=== PATIENT | male | born 1950 | race Caucasian/White ===

== ENCOUNTER 2017-11-04 03:12 | Emergency (ER) | payer MEDICARE, OTHER, SELFPAY ==
[2017-11-04 03:29] VITALS: BP 147/64; PULSE 65; RESP 16; TEMP 36.7; O2SAT 93; BMI 28.3
[2017-11-04] MEDS: HYDROMORPHONE 2 MG INJ IM (04:15)
--- NOTE | 2017-11-04 04:30 | ED_ITS ---
HPI - Back Pain/Injury General Chief Complaint: Back Pain/Injury Stated Complaint: BACK PAIN Time Seen by Provider: 11/04/17 03:20 History of Present Illness HPI Narrative: HPI 66-year-old male with a history of recurrent left-sided lumbar radiculopathy presents with typical left-sided paraspinal sharp pain that radiates to his left knee and occurred after tripping over a cord earlier today. Patient notes classic sharp radiating pain that is moderate to severe in intensity is provoked by walking, hip flexion, were sitting on the affected side. Patient denies falling or further injuries when he tripped. Patient denies a history of recent (further) trauma, fevers, chills, unexpected weight loss, decreased perineal sensation when toileting, difficulty urinating or incontinence, morning stiffness, IV drug use, alcoholism, recent invasive medical procedures, presyncope, abdominal pain, or dysuria. Smoking: never smoker. Anticoagulation: denies anticoagulation and Plavix. M/S/F/SocHx notable for: please see HPI; remainder reviewed with patient and in chart. ROS: Negative constitutional, eye, cardiovascular, pulmonary, GI, , MSK, skin , neurologic, psychiatric, endocrine unless noted in the HPI. Exam Gen: Pleasant, non-toxic appearing, resting comfortably. HEENT: NC, AT, PEERL, EOMI. Resp: CTAB Card: RRR GI: ND, non-tender to palpation, no palpable midline masses, no palpable midline pulsatility. : No CVA tenderness to percussion bilaterally. MSK: No visible deformities, strength and tone WNL. No lower thoracic or lumbar spinal TTP, step offs or deformities. No paraspinal TTP. Skin: Normal color with no visible lesions. Neuro: AO x 3, no facial asymmetry, vision and hearing WNL. Straight leg raise test - negative right, positive left. BLE distal sensation intact, 5/5 dorsiflexion / plantarflexion bilaterally. Gait: mildly antalgic, normal, narrow based gait, able to walk unassisted and stand on heels and toes with full apparent strength. Psych: Mood and affect appropriate. MDM Previous chart, nursing note, and vitals reviewed. A: 66-year-old male with a history of recurrent left-sided lumbar radiculopathy presents with typical left-sided paraspinal sharp pain that radiates to his left knee and occurred after tripping over a cord earlier today. DDx: muscle strain, muscle spasm, sciatica, lumbar radiculopathy, cauda equina syndrome, spinal cord abscess, vertebral osteomyelitis, vertebral diskitis, fracture, seronegative spondyloarthropathy, abdominal aortic aneurysm, abdominal aortic dissection, spontaneous hematoma, malignant spinal cord compression. Evaluation: * Cauda equina - consider unlikely given normal perineal sensation, lack of incontinence or urinary retention. * Infection - abscess, vertebral osteomyelitis, and diskitis are unlikely as the patient is immunocompetent and is with an absence of infectious signs and risk factors on ROS, and a lack of point tenderness. * Fracture - doubt given the absence of spinal TTP and lack of prior trauma * Seronegative spondyloarthropathy - unlikely, no further evaluation currently indicated given the absence of morning stiffness and negative RA, psoriatic arthritis, and autoimmune disease history. * AAA or Dissection - given the absence of tobacco use, the lack of a palpable pulsatile abdominal mass, abdominal pain, presyncope, an abdominal aortic aneurysm as well as dissection is considered unlikely and further investigation is not currently indicated. * Spinal Metastases - given the unremarkable ROS, absence of point spinal tenderness on exam and the lack of discernible neurological deficit, no further testing regarding this etiology is currently indicated. * Consider lumbar radiculopathy to be most likely cause of the patient's symptoms. Counseled patient regarding natural course of radicular back pain, given return to care instructions, and recommendation for primary care physician follow up. Discharged with RX for oxycodone 5-10 mg q6hr PRN pain. 12 tablets prescribed. * Patient given 2 mg hydromorphone IM for treatment of pain in the ED. Patient was notified of their elevated blood pressure and recommended to follow up with their primary care physician. As the patient is without evidence of acute end organ dysfunction no further emergent evaluation is indicated as per the 2013 [employer] clinical policy. Impression: Back Pain. (please reference below for remainder of encounter information) Related Data Home Medications Medication Instructions Recorded Confirmed atorvastatin [Lipitor] 10 mg PO HS #0 01/08/13 citalopram [Celexa] 20 mg PO QDAY #0 01/08/13 metformin [Glucophage XR] 500 mg PO TID #0 01/08/13 rabeprazole [Aciphex] 20 mg PO QDAY #0 01/08/13 Previous Rx's Medication Instructions Recorded cyclobenzaprine 10 mg PO HS #21 01/08/13 ibuprofen 800 mg PO Q8H #60 01/08/13 Allergies Allergy/AdvReac Type Severity Reaction Status Date / Time No Known Allergies Allergy Uncoded 08/30/17 11:57 PFS Social History Smoking Status: Never smoker Exam Initial Vital Signs Initial Vital Signs: Vital Signs Temperature 98.0 F 11/04/17 03:29 Pulse Rate 65 11/04/17 03:29 Respiratory Rate 16 11/04/17 03:29 Blood Pressure 147/64 H 11/04/17 03:29 Pulse Oximetry 93 11/04/17 03:29 Course Orders Ordered: Discontinued Medications Hydromorphone HCl (Dilaudid) 2 mg IM NOW ONE Stop: 11/04/17 03:58 Last Admin: 11/04/17 04:15 Dose: 2 mg Vital Signs - 8 hr 11/04/17 03:29 Temperature 98.0 F Pulse Rate 65 Respiratory Rate 16 Blood Pressure 147/64 H Pulse Oximetry 93 Discharge Plan Departure Prescriptions: No Action rabeprazole [Aciphex] 20 MG tablet,delayed release (DR/EC) 20 mg PO QDAY Qty: 0 RF: 0 atorvastatin [Lipitor] 10 MG tablet 10 mg PO HS Qty: 0 RF: 0 citalopram [Celexa] 20 MG tablet 20 mg PO QDAY Qty: 0 RF: 0 metformin [Glucophage XR] 500 MG tablet extended release 24 hr 500 mg PO TID Qty: 0 RF: 0 cyclobenzaprine 10 MG tablet 10 mg PO HS Qty: 21 RF: 0 ibuprofen 800 MG tablet 800 mg PO Q8H Qty: 60 RF: 0
[2017-11-04 05:02] VITALS: BP 145/90; PULSE 66; RESP 16; TEMP 36.8; O2SAT 95
== END 2017-11-04 05:03 | disposition home or self-care (01) ==
PROVIDERS: Emergency Provider Emergency Medicine; Family Provider Family Medicine; PCP Family Medicine
DX: M54.9 Dorsalgia, unspecified (principal)
CPT/HCPCS: 96372; 99282; 99283; J1170

== ENCOUNTER → 2019-02-13 09:09 | Outpatient (CLI) | payer MEDICARE, OTHER, SELFPAY ==
--- NOTE | 2019-02-13 | DI.MRI.S_ITS ---
PROCEDURE: MR LUMBAR SPINE WO CON INDICATIONS: LOW BACK PAIN TECHNIQUE: Noncontrast sagittal T1 spin echo and T2 fast echo, sagittal STIR, axial T1 and T2 fast spin echo through the lumbar spine. In cases with scoliosis, additional coronal T2 fast spin echo may be performed. COMPARISON: [facility], MR, L-SPINE WITHOUT CONTRAST, 06/26/2017, 13:49. FINDINGS: Image quality: Excellent. Alignment and Curvature: There is normal bony alignment. Bone Marrow: Marrow is of normal overall signal. No acute vertebral body compression fractures. Spinal Cord: Conus medullaris terminates at the L1-L2 level. Visualized cord demonstrates normal signal and size. Paraspinous Soft Tissues: No paravertebral masses. Discs: Moderate to severe desiccation is present throughout the lumbar spine. L1-L2: Minimal disc bulge without spinal stenosis or foraminal narrowing. No interval change. Minimal epidural lipomatosis. L2-L3: Mild disc bulge with mild spinal stenosis. Minimal epidural lipomatosis. Mild bilateral foraminal narrowing with facet and ligamentum flavum hypertrophy. No interval change. L3-L4: Mild disc bulge including a left foraminal component, minimally more prominent when compared to prior exam. Mild spinal stenosis is present. Severe left and mild right foraminal narrowing with flattening of the exiting L3 nerve root, unchanged in appearance. Minimal epidural lipomatosis is present. Facet and ligamentum flavum arthropathy are present. L4-L5: Mild disc bulge with nonvisualization of previously identified superimposed Protrusion. There is mild spinal stenosis as well is moderate left and moderate to severe right foraminal narrowing with facet and ligamentum flavum hypertrophy. L5-S1: Mild disc bulge without spinal stenosis. Mild bilateral foraminal narrowing, unchanged in appearance compared to prior exam. Facet and ligamentum flavum hypertrophy are present. IMPRESSION: 1. There is identified protrusion L4-L5 is less prominent. 2. Multilevel foraminal narrowing is unchanged most severe at L3-4 and L4-5 secondary to facet/ligamentum flavum arthropathy. 3. Multilevel overall mild spinal stenosis is present, secondary to disc bulge with contributing effects of facet/ligamentum flavum arthropathy. Dictated by: Kiana Garsia M.D. on 02/13/2019 at 14:34 Approved by: Kiana Garsia M.D. on 02/13/2019 at 15:17
== END ==
PROVIDERS: Family Provider Family Medicine; PCP Family Medicine; Visit Provider Physical Medicine & Rehabilitation Pain Medicine
DX: M51.26 Other intervertebral disc displacement, lumbar region (principal); M51.27 Other intervertebral disc displacement, lumbosacral region; M47.816 Spondylosis without myelopathy or radiculopathy, lumbar region; M48.061 Spinal stenosis, lumbar region without neurogenic claudication; M48.07 Spinal stenosis, lumbosacral region
CPT/HCPCS: 72148

== ENCOUNTER → 2021-04-07 10:26 | Outpatient (CLI) | payer MEDICARE, OTHER, SELFPAY ==
[2021-04-07 12:32] LABS: COVID19 -Nasal RAPID Negative (Negative)
== END ==
PROVIDERS: Family Provider Family Medicine; PCP Family Medicine; Visit Provider Nurse Practitioner Family
DX: Z20.822 Contact with and (suspected) exposure to COVID-19 (principal)
CPT/HCPCS: 87635; C9803

== ENCOUNTER → 2021-04-09 08:40 | Outpatient (CLI) | payer MEDICARE, OTHER, SELFPAY ==
--- NOTE | 2021-04-09 18:12 | DI.NM.S_ITS ---
DATE OF SERVICE: 04/09/2021 PROCEDURE PERFORMED: Exercise treadmill stress and rest myocardial perfusion imaging with gating to assess ejection fraction and regional wall motion. ORDERING PROVIDER: Dr. Destin Akers. INDICATIONS: The patient is a 70-year-old male status post percutaneous revascularization with bradycardia and PVCs. EXERCISE TREADMILL TESTING: The patient was able to exercise for 7 minutes, 13 seconds on a standard Juan protocol, suggesting average exercise capacity with an MANA of +2%. He had a normal heart rate and blood pressure response to exercise, achieving a maximum heart rate of 133 BPM (90% of his predicted maximum). He had no chest discomfort or anginal symptoms. His resting ECG shows sinus rhythm with nonspecific ST and T-wave abnormalities. With stress, these becomes slightly accentuated, but remain nonspecific. There were occasional PVCs with exercise, rarely in couplets and fairly frequent PACs in recovery, but no sustained arrhythmias. At 6 minutes of exercise, at a heart rate of 125 BPM, 22.5 millicuries of technetium-99m Myoview was injected and he was imaged 10 minutes later using an quantitative gated SPECT acquisition protocol. Earlier in the day while at rest, he had been injected with 10.0 millicuries of technetium-99m Myoview was imaged 20 minutes later, again using a gated SPECT acquisition protocol. FINDINGS: 1. Raw data: There is fair myocardial tracer uptake. The lung/heart ratio is normal at 0.14 with a normal TID ratio of 0.94. 2. Quantitated gated SPECT: Post-stress ejection fraction is estimated at 66%. There is akinesis in the proximal to mid inferior wall extending into the inferior septum, but sparing the distal inferior wall and apex. There are no other wall motion abnormalities. The resting images show a similar contraction pattern with an estimated ejection fraction of 62% and a mildly increased end- diastolic volume of 151 mL. 3. Myocardial perfusion imaging: The post-stress supine images show a severe perfusion defect in the proximal to mid inferior wall, extending into the inferior septum at the base and a subtle defect extending in the distal inferior wall, but sparing the apex. This defect persists on the prone images proximally but completely resolves in the mid to distal inferior wall on the prone images. The resting images show a similar perfusion pattern with very slight improvement at the periphery of the inferior defect, particularly distally, but this is a predominantly fixed perfusion defect. IMPRESSION: 1. Abnormal myocardial perfusion study. 2. Predominantly fixed, but slightly reversible small to moderate-sized perfusion defect in the proximal to mid inferior wall extending into the proximal inferior septum. With the associated wall motion abnormality, this most likely reflects a previous transmural myocardial infarction with slight bon-infarct ischemia, but the amount of ischemia is minimal. 3. Preserved left ventricular systolic function with proximal to mid inferior wall akinesis. Left ventricular volumes are mildly increased. 4. Average exercise capacity without angina or ECG evidence for ischemia. He had occasional PVCs, rarely in couplets with exercise and frequent PACs in recovery, but no sustained arrhythmias. Maxwell Wiggins - IRIS/bernie/hyacinth doc#: [id number]/job#: [id number] dd: 04/09/2021 17:17:00 dt: 04/09/2021 17:56:00 DICTATING MD/COPIES TO: Niko Gates MD; Destin Akers MD COPIES MNE: ELIO;
== END ==
PROVIDERS: Family Provider Family Medicine; PCP Family Medicine; Referring Provider Internal Medicine Cardiovascular Disease; Visit Provider Internal Medicine Cardiovascular Disease
DX: I49.3 Ventricular premature depolarization (principal); R94.39 Abnormal result of other cardiovascular function study
CPT/HCPCS: 78452; 93017; A9502